=== PATIENT | male | born 1955 | race Caucasian/White ===

== ENCOUNTER 2022-04-04 15:16 | Inpatient (IN) ==
[2022-04-04] MEDS ORDERED: Piperacillin/Tazobac ADVAN 3.375 GM in NS 0.9% 100 ml BAG 100 ML IV ONE (16:10)
[2022-04-04 16:14] LABS: PCO2 Arterial 53 mmHg (35-45); PO2 Arterial 97 mmHg (80-100)
[2022-04-04] MEDS ORDERED: cefTRIAXone 1 gm/50 mL D5W 1 GM/50 ML BAG IV ONE (16:30)
[2022-04-04] MEDS: methylPREDNISolone SOD SUCC 40 mg/ml 1 ml VIAL IV SCH ×2 (16:39→23:48)
[2022-04-04] MEDS: Enoxaparin 40 MG/0.4 ML SYR SUBCUT SCH (16:39)
[2022-04-04] MEDS: Albuterol/Ipratropium NEB.SOL (2.5/0.5 MG) 3 ML NEB.SOLN INH SCH ×3 (16:45→22:31)
[2022-04-04] MEDS ORDERED: DOXYcycline IV 100 MG in NS 0.9% 250 ML IVPB ONE (17:00)
[2022-04-04] MEDS ORDERED: Zosyn per Pharmacy NOTE FOLLOW UP SCH (17:00)
[2022-04-04] MEDS ORDERED: Nicotine GUM 4MG FRUIT FLAVOR PO PRN (18:05)
[2022-04-04] MEDS: Morphine 2 MG/ML SYRINGE IV PRN (21:17)
[2022-04-04] MEDS: NS 0.9% 1000 ml BAG 1,000 ML IV SCH (21:20)
[2022-04-04] MEDS ORDERED: ZOSYN 3.375 GM Q8H per EXTENDED INFUSION IV SCH (22:00)
[2022-04-05] MEDS: Morphine 2 MG/ML SYRINGE IV PRN (03:56)
[2022-04-05 05:10] LABS: ABS Lymphocytes 0.3 10^3/ul (1.0-4.8); ABS Monocytes 0.1 10^3/ul (0-0.8); ABS Neutrophils 4.4 10^3/ul (1.5-7.7); Hematocrit 31 % (42-52); Mean Corpuscular HGB Conc 33 g/dL (31-36); Mean Corpuscular Hemoglobin 30 pg (27-31); Mean Corpuscular Volume 91 fL (80-94); Mean Platelet Volume 6.9 fL (7.4-10.4); Nucleated Red Blood Cells % 0.1; Platelet Count 501 10^3/uL (150-450); Red Blood Count 3.37 10^6 /uL (4.18-5.48); Red Cell Distribution Width 14 % (10-15); White Blood Count 4.8 10^3/uL (3.5-10.8)
[2022-04-05 06:29] LABS: Albumin/Globulin Ratio 1.3 (1-3); Globulin 2.4 g/dL (2-4); Potassium 4.6 mmol/L (3.5-5.0); Total Bilirubin 0.2 mg/dL (0.2-1.0); Total Protein 5.4 g/dL (6.4-8.9); eGFR CKD-EPI 131.3 (>60)
[2022-04-05] MEDS: Albuterol/Ipratropium NEB.SOL (2.5/0.5 MG) 3 ML NEB.SOLN INH SCH ×3 (07:11→19:16)
[2022-04-05] MEDS: Mometasone/Formoter 200/5 MDI INH SCH ×2 (07:11→19:16)
[2022-04-05] MEDS: Nicotine PATCH 21 MG/24 HR PATCH TRANSDERM SCH (07:22)
[2022-04-05] MEDS: methylPREDNISolone SOD SUCC 40 mg/ml 1 ml VIAL IV SCH ×2 (07:22→16:39)
[2022-04-05] MEDS: Aspirin EC 81 mg TAB.EC (enteric coated) PO SCH (07:23)
[2022-04-05] MEDS: DOXYcycline 100 MG in NS 0.9% 250 ml 250 ML IVPB SCH ×2 (09:00→20:53)
[2022-04-05] MEDS ORDERED: Iohexol 350 (CONTRAST) 500 ML MDV IV ONE (09:01)
[2022-04-05] MEDS: Morphine ORAL CONCENTRATE 5 MG/0.25 ML ORAL.SYRIN SL PRN ×3 (10:04→20:26)
[2022-04-05] MEDS ORDERED: Acetylcysteine INHALATION SOL 200 MG/ML NEB.SOLN 10 ML INH PRN (13:52)
[2022-04-05] MEDS: NS 0.9% 1000 ml BAG 1,000 ML IV SCH (14:42)
[2022-04-05] MEDS: Enoxaparin 40 MG/0.4 ML SYR SUBCUT SCH (16:39)
[2022-04-05] MEDS: cefTRIAXone 1 gm/50 mL D5W 1 GM/50 ML BAG IV SCH (17:39)
[2022-04-06] MEDS: methylPREDNISolone SOD SUCC 40 mg/ml 1 ml VIAL IV SCH ×2 (01:42→09:33)
[2022-04-06] MEDS: Albuterol/Ipratropium NEB.SOL (2.5/0.5 MG) 3 ML NEB.SOLN INH SCH (07:55)
[2022-04-06] MEDS: Mometasone/Formoter 200/5 MDI INH SCH ×2 (07:55→19:27)
[2022-04-06] MEDS: Morphine ORAL CONCENTRATE 5 MG/0.25 ML ORAL.SYRIN SL PRN ×3 (09:12→19:35)
[2022-04-06] MEDS: Aspirin EC 81 mg TAB.EC (enteric coated) PO SCH (09:12)
[2022-04-06] MEDS: Nicotine PATCH 21 MG/24 HR PATCH TRANSDERM SCH (09:23)
[2022-04-06] MEDS: DOXYcycline 100 MG in NS 0.9% 250 ml 250 ML IVPB SCH ×2 (09:23→19:36)
[2022-04-06] MEDS: Enoxaparin 40 MG/0.4 ML SYR SUBCUT SCH (16:29)
[2022-04-06] MEDS: cefTRIAXone 1 gm/50 mL D5W 1 GM/50 ML BAG IV SCH (17:08)
[2022-04-06] MEDS: SPIRIVA Respimat (tiotropium) 2.5 mcg/inh Inhaler INH SCH (19:27)
[2022-04-07] MEDS: Morphine ORAL CONCENTRATE 5 MG/0.25 ML ORAL.SYRIN SL PRN ×5 (00:21→21:04)
[2022-04-07 05:31] LABS: ABS Lymphocytes 1.5 10^3/ul (1.0-4.8); ABS Monocytes 1.1 10^3/ul (0-0.8); ABS Neutrophils 8.6 10^3/ul (1.5-7.7); Eosinophil % 0.1 %; Hematocrit 30 % (42-52); Hemoglobin 9.7 g/dL (14.0-18.0); Lymphocyte % 13.3 %; Mean Corpuscular HGB Conc 32 g/dL (31-36); Mean Corpuscular Hemoglobin 30 pg (27-31); Mean Corpuscular Volume 93 fL (80-94); Mean Platelet Volume 6.5 fL (7.4-10.4); Platelet Count 536 10^3/uL (150-450); Red Blood Count 3.27 10^6 /uL (4.18-5.48); Red Cell Distribution Width 14 % (10-15); White Blood Count 11.2 10^3/uL (3.5-10.8)
[2022-04-07 06:20] LABS: Potassium 4.8 mmol/L (3.5-5.0); eGFR CKD-EPI 124.2 (>60)
[2022-04-07] MEDS ORDERED: Magnesium Hydroxide LIQ 30 ML UDC PO ONE (07:15)
[2022-04-07] MEDS: Mometasone/Formoter 200/5 MDI INH SCH ×2 (07:40→20:17)
[2022-04-07] MEDS: SPIRIVA Respimat (tiotropium) 2.5 mcg/inh Inhaler INH SCH (08:06)
[2022-04-07] MEDS: Aspirin EC 81 mg TAB.EC (enteric coated) PO SCH (08:44)
[2022-04-07] MEDS: Nicotine PATCH 21 MG/24 HR PATCH TRANSDERM SCH (08:45)
[2022-04-07] MEDS: DOXYcycline 100 MG in NS 0.9% 250 ml 250 ML IVPB SCH ×2 (09:59→19:47)
[2022-04-07] MEDS: Albuterol/Ipratropium NEB.SOL (2.5/0.5 MG) 3 ML NEB.SOLN INH PRN (10:59)
[2022-04-07] MEDS ORDERED: Carbamide Peroxide 6.5% OTIC 15 ML BTL BOTH EARS ONE (11:39)
[2022-04-07] MEDS: Enoxaparin 40 MG/0.4 ML SYR SUBCUT SCH (18:06)
[2022-04-07] MEDS: cefTRIAXone 1 gm/50 mL D5W 1 GM/50 ML BAG IV SCH (18:09)
[2022-04-07] MEDS: HYDROcodone/ACETAMIN 5/325 mg TAB PO PRN (20:05)
[2022-04-08] MEDS: Morphine ORAL CONCENTRATE 5 MG/0.25 ML ORAL.SYRIN SL PRN ×4 (06:41→14:06)
[2022-04-08] MEDS: Mometasone/Formoter 200/5 MDI INH SCH ×2 (07:49→19:47)
[2022-04-08] MEDS: SPIRIVA Respimat (tiotropium) 2.5 mcg/inh Inhaler INH SCH (07:49)
[2022-04-08] MEDS: Lidocaine PATCH 5% PATCH TRANSDERM SCH (09:21)
[2022-04-08] MEDS: Nicotine PATCH 21 MG/24 HR PATCH TRANSDERM SCH (09:21)
[2022-04-08] MEDS: Aspirin EC 81 mg TAB.EC (enteric coated) PO SCH (09:23)
[2022-04-08] MEDS: DOXYcycline 100 MG in NS 0.9% 250 ml 250 ML IVPB SCH ×2 (09:33→21:15)
[2022-04-08] MEDS: Albuterol/Ipratropium NEB.SOL (2.5/0.5 MG) 3 ML NEB.SOLN INH PRN (13:32)
[2022-04-08 15:48] LABS: PCO2 Arterial 63 mmHg (35-45); PO2 Arterial 74 mmHg (80-100)
[2022-04-08] MEDS ORDERED: Lorazepam PYXIS KEY PRN (15:57)
[2022-04-08] MEDS: cefTRIAXone 1 gm/50 mL D5W 1 GM/50 ML BAG IV SCH (17:31)
[2022-04-08] MEDS: Enoxaparin 40 MG/0.4 ML SYR SUBCUT SCH (17:31)
[2022-04-09] MEDS ORDERED: Levalbuterol 0.63MG/3ML NEB UNIT OF USE INH ONE (06:00)
[2022-04-09] MEDS ORDERED: Buffered Lidocaine 1% SYRIN 1 ml INTRADERM ONE (06:00)
[2022-04-09] MEDS ORDERED: Famotidine IV 10 MG/ML 2 ml VIAL (20 mg) IV ONE (06:00)
[2022-04-09] MEDS: Lactated Ringers 1000 ml BAG 1,000 ML IV SCH (06:16)
[2022-04-09] MEDS: Morphine ORAL CONCENTRATE 5 MG/0.25 ML ORAL.SYRIN SL PRN ×2 (06:24→19:50)
[2022-04-09] MEDS: Albuterol/Ipratropium NEB.SOL (2.5/0.5 MG) 3 ML NEB.SOLN INH PRN ×2 (06:30→16:00)
[2022-04-09] MEDS: Mometasone/Formoter 200/5 MDI INH SCH ×2 (07:54→19:07)
[2022-04-09] MEDS: SPIRIVA Respimat (tiotropium) 2.5 mcg/inh Inhaler INH SCH (08:18)
[2022-04-09] MEDS: DOXYcycline 100 MG in NS 0.9% 250 ml 250 ML IVPB SCH ×2 (08:21→19:48)
[2022-04-09] MEDS: Lidocaine PATCH 5% PATCH TRANSDERM SCH (08:21)
[2022-04-09] MEDS: Nicotine PATCH 21 MG/24 HR PATCH TRANSDERM SCH (08:21)
[2022-04-09] MEDS: Aspirin EC 81 mg TAB.EC (enteric coated) PO SCH (08:22)
[2022-04-09] MEDS: Morphine 2 MG/ML SYRINGE IV PRN (11:13)
[2022-04-09] MEDS ORDERED: Midazolam 2 mg/2 ml VIAL 1 mg/ml 2 ml VIAL (2 mg) ONE (13:38)
[2022-04-09] MEDS ORDERED: Lidocaine 2% PF 10 ML AMP ONE (13:39)
[2022-04-09] MEDS ORDERED: Propofol 10 MG/ML 20 ML BTL ONE (13:39)
[2022-04-09] MEDS ORDERED: Rocuronium 50 mg VIAL 10 mg/ml 5 ml VIAL (50 mg) ONE (13:40)
[2022-04-09] MEDS ORDERED: Benzocaine/Butamben/Tetracain (CETACAINE - SINGLE USE) 5 gm TOPICAL ONE (13:44)
[2022-04-09] MEDS ORDERED: Phenylephrine IV 10 MG/ML 1 ml VIAL ONE (14:40)
[2022-04-09] MEDS ORDERED: Naloxone 0.4 mg VIAL 0.4 mg/ml 1 ml VIAL IV PRN (14:56)
[2022-04-09] MEDS ORDERED: Acetaminophen IV 1 GM/100 ML BAG IV ONE (14:56)
[2022-04-09] MEDS ORDERED: Morphine 4 MG/ML VIAL (1 ml) IV PRN (14:56)
[2022-04-09] MEDS ORDERED: Ondansetron 4 mg VIAL 2 MG/ML 2 ml VIAL IV PRN (14:56)
[2022-04-09] MEDS ORDERED: Ondansetron 4 mg VIAL 2 MG/ML 2 ml VIAL ONE (15:23)
[2022-04-09] MEDS ORDERED: Albuterol/Ipratropium NEB.SOL (2.5/0.5 MG) 3 ML NEB.SOLN ONE (15:55)
[2022-04-09] MEDS: Enoxaparin 40 MG/0.4 ML SYR SUBCUT SCH (17:16)
[2022-04-09] MEDS: cefTRIAXone 1 gm/50 mL D5W 1 GM/50 ML BAG IV SCH (17:16)
[2022-04-09 18:23] LABS: Body Fluid Appearance Cloudy; Body Fluid Color Colorless; Body Fluid Source Broncheoalveolar lav
[2022-04-09 18:26] LABS: Body Fluid Total Cells Counted 300
[2022-04-10 06:23] LABS: ABS Lymphocytes 1.5 10^3/ul (1.0-4.8); ABS Neutrophils 5.5 10^3/ul (1.5-7.7); Eosinophil % 0.5 %; Hematocrit 28 % (42-52); Hemoglobin 9.3 g/dL (14.0-18.0); Lymphocyte % 18.9 %; Mean Corpuscular HGB Conc 33 g/dL (31-36); Mean Corpuscular Hemoglobin 30 pg (27-31); Mean Corpuscular Volume 92 fL (80-94); Mean Platelet Volume 6.7 fL (7.4-10.4); Platelet Count 559 10^3/uL (150-450); Red Cell Distribution Width 14 % (10-15); White Blood Count 8.1 10^3/uL (3.5-10.8)
[2022-04-10 06:41] LABS: Calcium 8.5 mg/dL (8.6-10.3); Potassium 4.3 mmol/L (3.5-5.0); eGFR CKD-EPI 121.3 (>60)
[2022-04-10] MEDS: SPIRIVA Respimat (tiotropium) 2.5 mcg/inh Inhaler INH SCH (07:23)
[2022-04-10] MEDS: Mometasone/Formoter 200/5 MDI INH SCH ×2 (07:23→19:21)
[2022-04-10] MEDS: DOXYcycline 100 MG in NS 0.9% 250 ml 250 ML IVPB SCH ×2 (08:18→19:47)
[2022-04-10] MEDS: Morphine ORAL CONCENTRATE 5 MG/0.25 ML ORAL.SYRIN SL PRN ×2 (09:56→23:46)
[2022-04-10] MEDS: Albuterol/Ipratropium NEB.SOL (2.5/0.5 MG) 3 ML NEB.SOLN INH PRN ×2 (10:12→22:55)
[2022-04-10] MEDS: Lidocaine PATCH 5% PATCH TRANSDERM SCH (10:45)
[2022-04-10] MEDS: Morphine 2 MG/ML SYRINGE IV PRN ×2 (10:45→20:00)
[2022-04-10] MEDS: Nicotine PATCH 21 MG/24 HR PATCH TRANSDERM SCH (10:46)
[2022-04-10] MEDS: Aspirin EC 81 mg TAB.EC (enteric coated) PO SCH (10:54)
[2022-04-10] MEDS: Lactated Ringers 1000 ml BAG 1,000 ML IV SCH ×2 (10:59→20:00)
[2022-04-10] MEDS: cefTRIAXone 1 gm/50 mL D5W 1 GM/50 ML BAG IV SCH (17:58)
[2022-04-10] MEDS: Enoxaparin 40 MG/0.4 ML SYR SUBCUT SCH (17:58)
[2022-04-10] MEDS: Albuterol HFA INHALER 8 gm MDI INH PRN (18:17)
[2022-04-11] MEDS: D5W IVPB SCH ×3 (00:18→16:30)
[2022-04-11] MEDS: SULFAMETHOXAZOLE IVPB SCH ×3 (00:18→16:30)
[2022-04-11] MEDS: TRIMETH IVPB SCH ×3 (00:18→16:30)
[2022-04-11] MEDS: LORazepam 2 mg VIAL 1 ml IV PUSH PRN ×2 (04:13→10:23)
[2022-04-11] MEDS: Morphine ORAL CONCENTRATE 5 MG/0.25 ML ORAL.SYRIN SL PRN ×3 (04:13→21:16)
[2022-04-11] MEDS: Lactated Ringers 1000 ml BAG 1,000 ML IV SCH ×2 (04:17→16:30)
[2022-04-11] MEDS: Mometasone/Formoter 200/5 MDI INH SCH ×2 (08:16→19:16)
[2022-04-11] MEDS: SPIRIVA Respimat (tiotropium) 2.5 mcg/inh Inhaler INH SCH (08:16)
[2022-04-11] MEDS: Lidocaine PATCH 5% PATCH TRANSDERM SCH (08:38)
[2022-04-11] MEDS: Nicotine PATCH 21 MG/24 HR PATCH TRANSDERM SCH (08:38)
[2022-04-11] MEDS: Aspirin EC 81 mg TAB.EC (enteric coated) PO SCH (08:40)
[2022-04-11 10:25] LABS: ABS Eosinophils 0.3 10^3/ul (0-0.6); ABS Lymphocytes 1.6 10^3/ul (1.0-4.8); ABS Monocytes 0.9 10^3/ul (0-0.8); ABS Neutrophils 9.8 10^3/ul (1.5-7.7); Eosinophil % 2.8 %; Hematocrit 30 % (42-52); Hemoglobin 9.5 g/dL (14.0-18.0); Lymphocyte % 12.4 %; Mean Corpuscular HGB Conc 32 g/dL (31-36); Mean Corpuscular Hemoglobin 29 pg (27-31); Mean Corpuscular Volume 92 fL (80-94); Mean Platelet Volume 6.2 fL (7.4-10.4); Platelet Count 593 10^3/uL (150-450); Red Blood Count 3.23 10^6 /uL (4.18-5.48); Red Cell Distribution Width 14 % (10-15); White Blood Count 12.7 10^3/uL (3.5-10.8)
[2022-04-11] MEDS: Albuterol/Ipratropium NEB.SOL (2.5/0.5 MG) 3 ML NEB.SOLN INH PRN ×2 (10:28→19:15)
[2022-04-11 10:57] LABS: Calcium 8.8 mg/dL (8.6-10.3); Potassium 4.2 mmol/L (3.5-5.0); eGFR CKD-EPI 125.3 (>60)
[2022-04-11] MEDS: Morphine 2 MG/ML SYRINGE IV PRN ×2 (13:59→19:19)
[2022-04-11] MEDS: Enoxaparin 40 MG/0.4 ML SYR SUBCUT SCH (16:31)
[2022-04-12] MEDS: Morphine ORAL CONCENTRATE 5 MG/0.25 ML ORAL.SYRIN SL PRN ×3 (01:33→19:50)
[2022-04-12] MEDS: D5W IVPB SCH ×3 (01:34→16:15)
[2022-04-12] MEDS: TRIMETH IVPB SCH ×3 (01:34→16:15)
[2022-04-12] MEDS: SULFAMETHOXAZOLE IVPB SCH ×3 (01:34→16:15)
[2022-04-12] MEDS: Albuterol/Ipratropium NEB.SOL (2.5/0.5 MG) 3 ML NEB.SOLN INH PRN ×3 (05:18→23:51)
[2022-04-12 06:58] LABS: ABS Basophils 0.1 10^3/ul (0-0.2); ABS Eosinophils 0.8 10^3/ul (0-0.6); ABS Lymphocytes 1.1 10^3/ul (1.0-4.8); ABS Neutrophils 13.5 10^3/ul (1.5-7.7); Eosinophil % 4.9 %; Hematocrit 29 % (42-52); Hemoglobin 9.6 g/dL (14.0-18.0); Lymphocyte % 6.5 %; Mean Corpuscular HGB Conc 33 g/dL (31-36); Mean Corpuscular Hemoglobin 30 pg (27-31); Mean Corpuscular Volume 91 fL (80-94); Mean Platelet Volume 6.5 fL (7.4-10.4); Platelet Count 608 10^3/uL (150-450); Red Blood Count 3.19 10^6 /uL (4.18-5.48); Red Cell Distribution Width 14 % (10-15); White Blood Count 16.4 10^3/uL (3.5-10.8)
[2022-04-12 07:29] LABS: Calcium 8.7 mg/dL (8.6-10.3); Potassium 4.2 mmol/L (3.5-5.0); eGFR CKD-EPI 122.2 (>60)
[2022-04-12] MEDS: Mometasone/Formoter 200/5 MDI INH SCH ×2 (07:52→20:00)
[2022-04-12] MEDS: SPIRIVA Respimat (tiotropium) 2.5 mcg/inh Inhaler INH SCH (07:54)
[2022-04-12] MEDS: Albuterol HFA INHALER 8 gm MDI INH PRN ×2 (08:01→14:33)
[2022-04-12] MEDS: HYDROcodone/ACETAMIN 5/325 mg TAB PO PRN ×2 (08:11→14:29)
[2022-04-12] MEDS: Aspirin EC 81 mg TAB.EC (enteric coated) PO SCH (08:11)
[2022-04-12] MEDS: Lidocaine PATCH 5% PATCH TRANSDERM SCH (08:13)
[2022-04-12] MEDS: Nicotine PATCH 21 MG/24 HR PATCH TRANSDERM SCH (08:13)
[2022-04-12] MEDS: Enoxaparin 40 MG/0.4 ML SYR SUBCUT SCH (16:15)
[2022-04-12] MEDS: Senna TAB 8.6 mg TAB PO PRN (19:51)
[2022-04-13] MEDS: TRIMETH IVPB SCH ×3 (01:32→16:19)
[2022-04-13] MEDS: D5W IVPB SCH ×3 (01:32→16:19)
[2022-04-13] MEDS: SULFAMETHOXAZOLE IVPB SCH ×3 (01:32→16:19)
[2022-04-13] MEDS: Morphine ORAL CONCENTRATE 5 MG/0.25 ML ORAL.SYRIN SL PRN ×3 (02:22→23:08)
[2022-04-13 06:18] LABS: ABS Eosinophils 0.8 10^3/ul (0-0.6); ABS Lymphocytes 0.8 10^3/ul (1.0-4.8); ABS Monocytes 0.9 10^3/ul (0-0.8); ABS Neutrophils 10.5 10^3/ul (1.5-7.7); Eosinophil % 5.8 %; Hematocrit 29 % (42-52); Hemoglobin 9.6 g/dL (14.0-18.0); Lymphocyte % 6.3 %; Mean Corpuscular HGB Conc 33 g/dL (31-36); Mean Corpuscular Hemoglobin 30 pg (27-31); Mean Corpuscular Volume 91 fL (80-94); Mean Platelet Volume 6.4 fL (7.4-10.4); Platelet Count 554 10^3/uL (150-450); Red Blood Count 3.14 10^6 /uL (4.18-5.48); Red Cell Distribution Width 14 % (10-15)
[2022-04-13 06:45] LABS: Calcium 8.7 mg/dL (8.6-10.3); Potassium 4.4 mmol/L (3.5-5.0)
[2022-04-13 06:51] LABS: eGFR CKD-EPI 114.6 (>60)
[2022-04-13] MEDS: Albuterol/Ipratropium NEB.SOL (2.5/0.5 MG) 3 ML NEB.SOLN INH PRN ×2 (08:12→23:33)
[2022-04-13] MEDS: SPIRIVA Respimat (tiotropium) 2.5 mcg/inh Inhaler INH SCH (08:13)
[2022-04-13] MEDS: Mometasone/Formoter 200/5 MDI INH SCH ×2 (08:13→20:43)
[2022-04-13] MEDS: Aspirin EC 81 mg TAB.EC (enteric coated) PO SCH ×2 (09:10→10:38)
[2022-04-13] MEDS: HYDROcodone/ACETAMIN 5/325 mg TAB PO PRN ×2 (09:10→10:38)
[2022-04-13] MEDS: Nicotine PATCH 21 MG/24 HR PATCH TRANSDERM SCH (09:11)
[2022-04-13] MEDS: Lidocaine PATCH 5% PATCH TRANSDERM SCH (09:11)
[2022-04-13] MEDS: Enoxaparin 40 MG/0.4 ML SYR SUBCUT SCH (16:20)
[2022-04-13] MEDS ORDERED: LORazepam 2 mg VIAL 1 ml IV PUSH PRN (17:11)
[2022-04-13] MEDS: Senna TAB 8.6 mg TAB PO PRN (23:10)
[2022-04-14] MEDS: SULFAMETHOXAZOLE IVPB SCH ×3 (00:25→16:19)
[2022-04-14] MEDS: D5W IVPB SCH ×3 (00:25→16:19)
[2022-04-14] MEDS: TRIMETH IVPB SCH ×3 (00:25→16:19)
[2022-04-14] MEDS: Morphine ORAL CONCENTRATE 5 MG/0.25 ML ORAL.SYRIN SL PRN (04:06)
[2022-04-14] MEDS: Lidocaine PATCH 5% PATCH TRANSDERM SCH (08:12)
[2022-04-14] MEDS: Nicotine PATCH 21 MG/24 HR PATCH TRANSDERM SCH (08:12)
[2022-04-14] MEDS: Aspirin EC 81 mg TAB.EC (enteric coated) PO SCH (08:13)
[2022-04-14] MEDS: HYDROcodone/ACETAMIN 5/325 mg TAB PO PRN ×2 (08:13→21:19)
[2022-04-14] MEDS: SPIRIVA Respimat (tiotropium) 2.5 mcg/inh Inhaler INH SCH (08:22)
[2022-04-14] MEDS: Mometasone/Formoter 200/5 MDI INH SCH ×2 (08:23→20:10)
[2022-04-14] MEDS ORDERED: Furosemide 20 mg/2 ml IV VIAL IV SLOW PU ONE (13:59)
[2022-04-14] MEDS: Morphine 2 MG/ML SYRINGE IV PRN (14:51)
[2022-04-14] MEDS ORDERED: Gadoteridol (CONTRAST) 279.3 MG/ML 10 ML IV ONE (15:18)
[2022-04-14] MEDS: Enoxaparin 40 MG/0.4 ML SYR SUBCUT SCH (16:19)
[2022-04-14] MEDS: Polyethylene Glycol 3350 17 GM PACKET PO SCH ×2 (17:42→21:17)
[2022-04-15] MEDS: TRIMETH IVPB SCH ×3 (01:19→17:23)
[2022-04-15] MEDS: SULFAMETHOXAZOLE IVPB SCH ×3 (01:19→17:23)
[2022-04-15] MEDS: D5W IVPB SCH ×3 (01:19→17:23)
[2022-04-15] MEDS: Morphine 2 MG/ML SYRINGE IV PRN (02:21)
[2022-04-15 05:29] LABS: ABS Basophils 0.1 10^3/ul (0-0.2); ABS Eosinophils 1.4 10^3/ul (0-0.6); ABS Lymphocytes 0.9 10^3/ul (1.0-4.8); ABS Neutrophils 7.1 10^3/ul (1.5-7.7); Hematocrit 27 % (42-52); Hemoglobin 8.8 g/dL (14.0-18.0); Lymphocyte % 8.3 %; Mean Corpuscular HGB Conc 33 g/dL (31-36); Mean Corpuscular Hemoglobin 30 pg (27-31); Mean Corpuscular Volume 91 fL (80-94); Mean Platelet Volume 6.4 fL (7.4-10.4); Platelet Count 605 10^3/uL (150-450); Red Blood Count 2.93 10^6 /uL (4.18-5.48); Red Cell Distribution Width 14 % (10-15); White Blood Count 10.5 10^3/uL (3.5-10.8)
[2022-04-15 05:58] LABS: Calcium 8.7 mg/dL (8.6-10.3); Potassium 4.5 mmol/L (3.5-5.0); eGFR CKD-EPI 120.3 (>60)
[2022-04-15] MEDS: Nicotine PATCH 21 MG/24 HR PATCH TRANSDERM SCH (08:08)
[2022-04-15] MEDS: Lidocaine PATCH 5% PATCH TRANSDERM SCH (08:08)
[2022-04-15] MEDS: Aspirin EC 81 mg TAB.EC (enteric coated) PO SCH (08:09)
[2022-04-15] MEDS: Polyethylene Glycol 3350 17 GM PACKET PO SCH ×2 (08:09→20:42)
[2022-04-15] MEDS: Mometasone/Formoter 200/5 MDI INH SCH ×2 (08:20→21:03)
[2022-04-15] MEDS: Albuterol HFA INHALER 8 gm MDI INH PRN (08:20)
[2022-04-15] MEDS: SPIRIVA Respimat (tiotropium) 2.5 mcg/inh Inhaler INH SCH (08:20)
[2022-04-15] MEDS: Albuterol HFA INHALER 8 gm MDI INH SCH ×4 (12:11→23:11)
[2022-04-15] MEDS ORDERED: Furosemide 20 mg/2 ml IV VIAL IV SLOW PU ONE (13:34)
[2022-04-15] MEDS: Albuterol/Ipratropium NEB.SOL (2.5/0.5 MG) 3 ML NEB.SOLN INH ONE ×2 (14:39→14:40)
[2022-04-15 16:22] LABS: PCO2 Arterial 46 mmHg (35-45); PO2 Arterial 72 mmHg (80-100)
[2022-04-15] MEDS: Morphine ORAL CONCENTRATE 5 MG/0.25 ML ORAL.SYRIN SL PRN (17:23)
[2022-04-15] MEDS: Enoxaparin 40 MG/0.4 ML SYR SUBCUT SCH (17:24)
[2022-04-15] MEDS ORDERED: Albuterol/Ipratropium NEB.SOL (2.5/0.5 MG) 3 ML NEB.SOLN INH ONE (20:09)
[2022-04-16] MEDS: D5W IVPB SCH ×4 (00:21→23:58)
[2022-04-16] MEDS: SULFAMETHOXAZOLE IVPB SCH ×4 (00:21→23:58)
[2022-04-16] MEDS: TRIMETH IVPB SCH ×4 (00:21→23:58)
[2022-04-16] MEDS: Morphine 2 MG/ML SYRINGE IV PRN ×4 (03:06→20:06)
[2022-04-16] MEDS: Albuterol HFA INHALER 8 gm MDI INH SCH ×6 (04:04→22:52)
[2022-04-16] MEDS: Mometasone/Formoter 200/5 MDI INH SCH ×2 (08:35→19:15)
[2022-04-16] MEDS: SPIRIVA Respimat (tiotropium) 2.5 mcg/inh Inhaler INH SCH (08:35)
[2022-04-16] MEDS: Nicotine PATCH 21 MG/24 HR PATCH TRANSDERM SCH (08:54)
[2022-04-16] MEDS: Polyethylene Glycol 3350 17 GM PACKET PO SCH ×2 (08:54→20:07)
[2022-04-16] MEDS: Lidocaine PATCH 5% PATCH TRANSDERM SCH (08:54)
[2022-04-16] MEDS: HYDROcodone/ACETAMIN 5/325 mg TAB PO PRN (08:55)
[2022-04-16] MEDS: Aspirin EC 81 mg TAB.EC (enteric coated) PO SCH (08:56)
[2022-04-16] MEDS: Morphine ORAL CONCENTRATE 5 MG/0.25 ML ORAL.SYRIN SL PRN (12:52)
[2022-04-16] MEDS ORDERED: Albuterol HFA INHALER 8 gm MDI INH PRN (16:42)
[2022-04-16] MEDS: Enoxaparin 40 MG/0.4 ML SYR SUBCUT SCH (17:19)
[2022-04-17] MEDS: Albuterol HFA INHALER 8 gm MDI INH SCH ×5 (03:04→19:21)
[2022-04-17] MEDS: SPIRIVA Respimat (tiotropium) 2.5 mcg/inh Inhaler INH SCH (08:10)
[2022-04-17] MEDS: Mometasone/Formoter 200/5 MDI INH SCH ×2 (08:14→19:22)
[2022-04-17] MEDS: Aspirin EC 81 mg TAB.EC (enteric coated) PO SCH (09:47)
[2022-04-17] MEDS: HYDROcodone/ACETAMIN 5/325 mg TAB PO PRN (09:48)
[2022-04-17] MEDS: Lidocaine PATCH 5% PATCH TRANSDERM SCH (09:49)
[2022-04-17] MEDS: Polyethylene Glycol 3350 17 GM PACKET PO SCH ×2 (09:49→23:28)
[2022-04-17] MEDS: Nicotine PATCH 21 MG/24 HR PATCH TRANSDERM SCH (09:49)
[2022-04-17] MEDS: D5W IVPB SCH ×3 (11:22→23:59)
[2022-04-17] MEDS: SULFAMETHOXAZOLE IVPB SCH ×3 (11:22→23:59)
[2022-04-17] MEDS: TRIMETH IVPB SCH ×3 (11:22→23:59)
[2022-04-17] MEDS: Enoxaparin 40 MG/0.4 ML SYR SUBCUT SCH ×2 (17:26→17:30)
[2022-04-17] MEDS: Morphine ORAL CONCENTRATE 5 MG/0.25 ML ORAL.SYRIN SL PRN (23:37)
[2022-04-18] MEDS: Albuterol HFA INHALER 8 gm MDI INH SCH ×3 (01:20→14:18)
[2022-04-18 05:03] LABS: ABS Eosinophils 0.1 10^3/ul (0-0.6); ABS Lymphocytes 1.6 10^3/ul (1.0-4.8); ABS Monocytes 0.8 10^3/ul (0-0.8); ABS Neutrophils 5.3 10^3/ul (1.5-7.7); Eosinophil % 1.7 %; Hematocrit 26 % (42-52); Hemoglobin 8.7 g/dL (14.0-18.0); Lymphocyte % 20.1 %; Mean Corpuscular HGB Conc 33 g/dL (31-36); Mean Corpuscular Hemoglobin 30 pg (27-31); Mean Corpuscular Volume 90 fL (80-94); Mean Platelet Volume 6.1 fL (7.4-10.4); Platelet Count 728 10^3/uL (150-450); Red Blood Count 2.93 10^6 /uL (4.18-5.48); Red Cell Distribution Width 14 % (10-15); White Blood Count 7.9 10^3/uL (3.5-10.8)
[2022-04-18 05:29] LABS: Anion Gap 7 mmol/L (2-11); Blood Urea Nitrogen 4 mg/dL (6-24); CO2 Carbon Dioxide 29 mmol/L (22-32); Calcium 8.9 mg/dL (8.6-10.3); Chloride 94 mmol/L (101-111); Glucose 73 mg/dL (70-100); Potassium 4.8 mmol/L (3.5-5.0); Sodium 130 mmol/L (135-145); eGFR CKD-EPI 116.1 (>60)
[2022-04-18] MEDS: Mometasone/Formoter 200/5 MDI INH SCH ×2 (07:08→18:57)
[2022-04-18] MEDS: SPIRIVA Respimat (tiotropium) 2.5 mcg/inh Inhaler INH SCH (07:09)
[2022-04-18] MEDS: Nicotine PATCH 21 MG/24 HR PATCH TRANSDERM SCH (07:54)
[2022-04-18] MEDS: Lidocaine PATCH 5% PATCH TRANSDERM SCH (07:56)
[2022-04-18] MEDS: Polyethylene Glycol 3350 17 GM PACKET PO SCH ×2 (07:57→20:06)
[2022-04-18] MEDS: Aspirin EC 81 mg TAB.EC (enteric coated) PO SCH (07:58)
[2022-04-18] MEDS: SULFAMETHOXAZOLE IVPB SCH ×2 (09:58→18:02)
[2022-04-18] MEDS: TRIMETH IVPB SCH ×2 (09:58→18:02)
[2022-04-18] MEDS: D5W IVPB SCH ×2 (09:58→18:02)
[2022-04-18] MEDS: Morphine ORAL.SOLN 10 mg 2 mg/ml UDC 5 ml (10 mg) PO PRN (11:39)
[2022-04-18] MEDS: Albuterol/Ipratropium NEB.SOL (2.5/0.5 MG) 3 ML NEB.SOLN INH SCH ×3 (17:38→22:57)
[2022-04-18] MEDS: Enoxaparin 40 MG/0.4 ML SYR SUBCUT SCH (18:05)
[2022-04-18 18:46] LABS: ALT 10 U/L (7-52); AST 13 U/L (13-39); Albumin 2.5 g/dL (3.2-5.2); Alkaline Phosphatase 75 U/L (35-149); C Reactive Protein 33.84 mg/L (<8.01); Globulin 2.6 g/dL (2-4); Lipase 13 U/L (11.0-82.0); Total Protein 5.1 g/dL (6.4-8.9)
[2022-04-19] MEDS: TRIMETH IVPB SCH ×3 (01:48→18:33)
[2022-04-19] MEDS: SULFAMETHOXAZOLE IVPB SCH ×3 (01:48→18:33)
[2022-04-19] MEDS: D5W IVPB SCH ×3 (01:48→18:33)
[2022-04-19] MEDS: Albuterol/Ipratropium NEB.SOL (2.5/0.5 MG) 3 ML NEB.SOLN INH SCH ×6 (02:52→23:45)
[2022-04-19] MEDS: Mometasone/Formoter 200/5 MDI INH SCH ×2 (06:53→19:12)
[2022-04-19] MEDS: SPIRIVA Respimat (tiotropium) 2.5 mcg/inh Inhaler INH SCH ×2 (06:53→07:02)
[2022-04-19] MEDS: Nicotine PATCH 21 MG/24 HR PATCH TRANSDERM SCH (09:21)
[2022-04-19] MEDS: Polyethylene Glycol 3350 17 GM PACKET PO SCH ×3 (09:22→20:07)
[2022-04-19] MEDS: Lidocaine PATCH 5% PATCH TRANSDERM SCH ×2 (09:22→14:27)
[2022-04-19] MEDS: Aspirin EC 81 mg TAB.EC (enteric coated) PO SCH (09:23)
[2022-04-19] MEDS: Senna TAB 8.6 mg TAB PO PRN (09:34)
[2022-04-19] MEDS: Morphine ORAL.SOLN 10 mg 2 mg/ml UDC 5 ml (10 mg) PO PRN ×2 (11:17→22:54)
[2022-04-19] MEDS: Enoxaparin 40 MG/0.4 ML SYR SUBCUT SCH (16:11)
[2022-04-19] MEDS ORDERED: Magnesium Hydroxide LIQ 30 ML UDC PO PRN (18:32)
[2022-04-20] MEDS: TRIMETH IVPB SCH ×3 (02:10→19:13)
[2022-04-20] MEDS: SULFAMETHOXAZOLE IVPB SCH ×3 (02:10→19:13)
[2022-04-20] MEDS: D5W IVPB SCH ×3 (02:10→19:13)
[2022-04-20] MEDS: Albuterol/Ipratropium NEB.SOL (2.5/0.5 MG) 3 ML NEB.SOLN INH SCH ×6 (04:09→23:53)
[2022-04-20] MEDS: SPIRIVA Respimat (tiotropium) 2.5 mcg/inh Inhaler INH SCH (07:25)
[2022-04-20] MEDS: Mometasone/Formoter 200/5 MDI INH SCH ×2 (07:25→19:07)
[2022-04-20] MEDS: Nicotine PATCH 21 MG/24 HR PATCH TRANSDERM SCH (10:24)
[2022-04-20] MEDS: Lidocaine PATCH 5% PATCH TRANSDERM SCH ×2 (10:24→10:25)
[2022-04-20] MEDS: Aspirin EC 81 mg TAB.EC (enteric coated) PO SCH (10:25)
[2022-04-20] MEDS: Polyethylene Glycol 3350 17 GM PACKET PO SCH ×2 (10:42→20:33)
[2022-04-20] MEDS: Enoxaparin 40 MG/0.4 ML SYR SUBCUT SCH (17:58)
[2022-04-21] MEDS: Morphine ORAL.SOLN 10 mg 2 mg/ml UDC 5 ml (10 mg) PO PRN ×2 (02:42→13:41)
[2022-04-21] MEDS: Albuterol/Ipratropium NEB.SOL (2.5/0.5 MG) 3 ML NEB.SOLN INH SCH ×6 (03:57→23:15)
[2022-04-21 05:35] LABS: ABS Basophils 0.1 10^3/ul (0-0.2); ABS Eosinophils 0.1 10^3/ul (0-0.6); ABS Lymphocytes 1.4 10^3/ul (1.0-4.8); ABS Monocytes 0.8 10^3/ul (0-0.8); ABS Neutrophils 8.5 10^3/ul (1.5-7.7); Eosinophil % 0.6 %; Hematocrit 24 % (42-52); Hemoglobin 8.1 g/dL (14.0-18.0); Lymphocyte % 12.5 %; Mean Corpuscular HGB Conc 33 g/dL (31-36); Mean Corpuscular Hemoglobin 30 pg (27-31); Mean Corpuscular Volume 92 fL (80-94); Mean Platelet Volume 5.7 fL (7.4-10.4); Platelet Count 734 10^3/uL (150-450); Red Blood Count 2.66 10^6 /uL (4.18-5.48); Red Cell Distribution Width 14 % (10-15); White Blood Count 10.9 10^3/uL (3.5-10.8)
[2022-04-21 05:51] LABS: Calcium 9.3 mg/dL (8.6-10.3); Magnesium 1.9 mg/dL (1.9-2.7); Phosphorus 3.7 mg/dL (2.5-5.0); eGFR CKD-EPI 107.6 (>60)
[2022-04-21 06:06] LABS: TSH Ultra Thyroid Stim Horm 3.24 mcIU/mL (0.34-5.60)
[2022-04-21] MEDS: Mometasone/Formoter 200/5 MDI INH SCH ×2 (07:48→18:52)
[2022-04-21] MEDS: SPIRIVA Respimat (tiotropium) 2.5 mcg/inh Inhaler INH SCH (07:48)
[2022-04-21] MEDS: Lidocaine PATCH 5% PATCH TRANSDERM SCH ×2 (08:29)
[2022-04-21] MEDS: Nicotine PATCH 21 MG/24 HR PATCH TRANSDERM SCH (08:29)
[2022-04-21] MEDS: Polyethylene Glycol 3350 17 GM PACKET PO SCH ×2 (08:30→22:25)
[2022-04-21] MEDS: Aspirin EC 81 mg TAB.EC (enteric coated) PO SCH (08:30)
[2022-04-21] MEDS: Enoxaparin 40 MG/0.4 ML SYR SUBCUT SCH (17:55)
[2022-04-22] MEDS: Albuterol/Ipratropium NEB.SOL (2.5/0.5 MG) 3 ML NEB.SOLN INH SCH ×4 (03:18→17:51)
[2022-04-22] MEDS: SPIRIVA Respimat (tiotropium) 2.5 mcg/inh Inhaler INH SCH (07:30)
[2022-04-22] MEDS: Mometasone/Formoter 200/5 MDI INH SCH ×2 (07:30→17:52)
[2022-04-22] MEDS: Aspirin EC 81 mg TAB.EC (enteric coated) PO SCH (08:02)
[2022-04-22] MEDS: Polyethylene Glycol 3350 17 GM PACKET PO SCH ×2 (08:05→19:59)
[2022-04-22] MEDS: Nicotine PATCH 21 MG/24 HR PATCH TRANSDERM SCH (08:13)
[2022-04-22] MEDS: Lidocaine PATCH 5% PATCH TRANSDERM SCH ×2 (08:13)
[2022-04-22] MEDS: Enoxaparin 40 MG/0.4 ML SYR SUBCUT SCH (18:15)
[2022-04-23] MEDS: Albuterol/Ipratropium NEB.SOL (2.5/0.5 MG) 3 ML NEB.SOLN INH SCH ×4 (01:16→18:14)
[2022-04-23 06:51] LABS: ABS Basophils 0.5 10^3/ul (0-0.2); ABS Eosinophils 1.6 10^3/ul (0-0.6); ABS Lymphocytes 1.3 10^3/ul (1.0-4.8); ABS Monocytes 0.8 10^3/ul (0-0.8); ABS Neutrophils 7.7 10^3/ul (1.5-7.7); Eosinophil % 13.3 %; Hematocrit 26 % (42-52); Hemoglobin 8.7 g/dL (14.0-18.0); Lymphocyte % 11.3 %; Mean Corpuscular HGB Conc 33 g/dL (31-36); Mean Corpuscular Hemoglobin 31 pg (27-31); Mean Corpuscular Volume 92 fL (80-94); Platelet Count 770 10^3/uL (150-450); Red Blood Count 2.85 10^6 /uL (4.18-5.48); Red Cell Distribution Width 15 % (10-15)
[2022-04-23 07:13] LABS: Calcium 9.5 mg/dL (8.6-10.3); Potassium 4.9 mmol/L (3.5-5.0); eGFR CKD-EPI 107.6 (>60)
[2022-04-23] MEDS: Mometasone/Formoter 200/5 MDI INH SCH ×2 (07:30→18:15)
[2022-04-23] MEDS: SPIRIVA Respimat (tiotropium) 2.5 mcg/inh Inhaler INH SCH (07:30)
[2022-04-23] MEDS: Lidocaine PATCH 5% PATCH TRANSDERM SCH ×2 (08:18)
[2022-04-23] MEDS: Nicotine PATCH 21 MG/24 HR PATCH TRANSDERM SCH (08:18)
[2022-04-23] MEDS: Aspirin EC 81 mg TAB.EC (enteric coated) PO SCH (08:19)
[2022-04-23] MEDS: Polyethylene Glycol 3350 17 GM PACKET PO SCH ×2 (08:19→20:15)
[2022-04-23] MEDS: Enoxaparin 40 MG/0.4 ML SYR SUBCUT SCH (18:37)
[2022-04-24] MEDS: Albuterol/Ipratropium NEB.SOL (2.5/0.5 MG) 3 ML NEB.SOLN INH SCH (00:57)
[2022-04-24] MEDS ORDERED: Piperacillin/Tazobac ADVAN 3.375 GM in NS 0.9% 100 ml BAG 100 ML IV ONE (06:36)
[2022-04-24] MEDS ORDERED: Acetaminophen IV 1 GM/100ML 100 ML IV PRN (06:37)
[2022-04-24 06:52] LABS: Calcium 9.5 mg/dL (8.6-10.3); Magnesium 1.6 mg/dL (1.9-2.7); Potassium 4.6 mmol/L (3.5-5.0); eGFR CKD-EPI 113.9 (>60)
[2022-04-24 07:05] LABS: ABS Basophils 0.2 10^3/ul (0-0.2); ABS Eosinophils 0.4 10^3/ul (0-0.6); ABS Lymphocytes 0.8 10^3/ul (1.0-4.8); ABS Monocytes 0.8 10^3/ul (0-0.8); ABS Neutrophils 16.2 10^3/ul (1.5-7.7); Eosinophil % 2.1 %; Hematocrit 28 % (42-52); Lymphocyte % 4.5 %; Mean Corpuscular HGB Conc 32 g/dL (31-36); Mean Corpuscular Hemoglobin 30 pg (27-31); Mean Corpuscular Volume 92 fL (80-94); Mean Platelet Volume 5.9 fL (7.4-10.4); Platelet Count 743 10^3/uL (150-450); Red Blood Count 3.06 10^6 /uL (4.18-5.48); Red Cell Distribution Width 15 % (10-15); White Blood Count 18.4 10^3/uL (3.5-10.8)
[2022-04-24] MEDS ORDERED: Magnesium Sulfate 2 gm BAG 2 GM/50 ML BAG IVPB ONE (07:51)
[2022-04-24] MEDS: Aspirin EC 81 mg TAB.EC (enteric coated) PO SCH (08:04)
[2022-04-24] MEDS: Nicotine PATCH 21 MG/24 HR PATCH TRANSDERM SCH (08:05)
[2022-04-24] MEDS: Lidocaine PATCH 5% PATCH TRANSDERM SCH ×2 (08:08→08:20)
[2022-04-24] MEDS ORDERED: Zosyn per Pharmacy NOTE FOLLOW UP SCH (09:00)
[2022-04-24 09:10] LABS: C Reactive Protein 75.45 mg/L (<8.01)
[2022-04-24] MEDS: Mometasone/Formoter 200/5 MDI INH SCH ×2 (09:21→20:31)
[2022-04-24] MEDS: SPIRIVA Respimat (tiotropium) 2.5 mcg/inh Inhaler INH SCH (09:21)
[2022-04-24] MEDS: Fluconazole 200 MG IVPREMIX 200 MG/100 ML BAG IVPB SCH (11:30)
[2022-04-24] MEDS: Polyethylene Glycol 3350 17 GM PACKET PO SCH ×2 (12:02→21:22)
[2022-04-24] MEDS ORDERED: Iohexol 350 (CONTRAST) 500 ML MDV IV ONE (14:27)
[2022-04-24] MEDS: ZOSYN 3.375 GM Q8H per EXTENDED INFUSION IV SCH ×5 (14:31→22:31)
[2022-04-24] MEDS ORDERED: PEG 3000 GI LAVAGE 1 GALLON PO ONE (16:00)
[2022-04-24] MEDS: Enoxaparin 40 MG/0.4 ML SYR SUBCUT SCH ×2 (17:43→17:47)
[2022-04-25 03:36] LABS: Urine Appearance Cloudy; Urine Bilirubin Negative (Negative); Urine Blood Negative (Negative); Urine Color Yellow; Urine Glucose Negative (Negative); Urine Ketones Negative (Negative); Urine Nitrite Negative (Negative); Urine Protein Negative (Negative); Urine Specific Gravity 1.044 (1.002-1.030); Urine Urobilinogen Negative (Negative)
[2022-04-25] MEDS: ZOSYN 3.375 GM Q8H per EXTENDED INFUSION IV SCH ×3 (05:36→22:40)
[2022-04-25] MEDS ORDERED: Magnesium CITRATE LIQ 300 ML BTL PO ONE (06:00)
[2022-04-25 06:22] LABS: Hematocrit 28 % (42-52); Hemoglobin 9.3 g/dL (14.0-18.0); Mean Corpuscular HGB Conc 33 g/dL (31-36); Mean Corpuscular Hemoglobin 31 pg (27-31); Mean Corpuscular Volume 93 fL (80-94); Mean Platelet Volume 5.8 fL (7.4-10.4); Platelet Count 733 10^3/uL (150-450); Red Blood Count 3.06 10^6 /uL (4.18-5.48); Red Cell Distribution Width 15 % (10-15); White Blood Count 18.3 10^3/uL (3.5-10.8)
[2022-04-25 06:50] LABS: Calcium 9.3 mg/dL (8.6-10.3); Magnesium 1.8 mg/dL (1.9-2.7); Potassium 4.3 mmol/L (3.5-5.0); eGFR CKD-EPI 106.5 (>60)
[2022-04-25] MEDS: SPIRIVA Respimat (tiotropium) 2.5 mcg/inh Inhaler INH SCH (07:31)
[2022-04-25] MEDS: Mometasone/Formoter 200/5 MDI INH SCH ×2 (07:31→19:27)
[2022-04-25 09:50] LABS: ABS Eosinophils 0.7 10^3/ul (0-0.6); ABS Lymphocytes 0.8 10^3/ul (1.0-4.8); ABS Monocytes 0.9 10^3/ul (0-0.8); ABS Neutrophils 15.9 10^3/ul (1.5-7.7); Eosinophil % 3.6 %; Lymphocyte % 4.4 %; RBC Morphology Normal (Normal)
[2022-04-25] MEDS: Fluconazole 200 MG IVPREMIX 200 MG/100 ML BAG IVPB SCH (09:51)
[2022-04-25] MEDS: Aspirin EC 81 mg TAB.EC (enteric coated) PO SCH (09:52)
[2022-04-25] MEDS: Nicotine PATCH 21 MG/24 HR PATCH TRANSDERM SCH (09:54)
[2022-04-25] MEDS: Lidocaine PATCH 5% PATCH TRANSDERM SCH ×2 (09:56→09:57)
[2022-04-25] MEDS: Polyethylene Glycol 3350 17 GM PACKET PO SCH ×2 (09:57→20:19)
[2022-04-25] MEDS: Enoxaparin 40 MG/0.4 ML SYR SUBCUT SCH (18:09)
[2022-04-25] MEDS: Albuterol/Ipratropium NEB.SOL (2.5/0.5 MG) 3 ML NEB.SOLN INH PRN (22:16)
[2022-04-26] MEDS: ZOSYN 3.375 GM Q8H per EXTENDED INFUSION IV SCH ×3 (05:35→21:10)
[2022-04-26 06:52] LABS: Hematocrit 23 % (42-52); Hemoglobin 7.6 g/dL (14.0-18.0); Mean Corpuscular HGB Conc 33 g/dL (31-36); Mean Corpuscular Hemoglobin 30 pg (27-31); Mean Corpuscular Volume 92 fL (80-94); Platelet Count 622 10^3/uL (150-450); Red Blood Count 2.53 10^6 /uL (4.18-5.48); Red Cell Distribution Width 15 % (10-15); White Blood Count 12.5 10^3/uL (3.5-10.8)
[2022-04-26 07:17] LABS: Calcium 8.4 mg/dL (8.6-10.3); Magnesium 1.9 mg/dL (1.9-2.7); Potassium 4.1 mmol/L (3.5-5.0)
[2022-04-26 07:23] LABS: eGFR CKD-EPI 111.2 (>60)
[2022-04-26] MEDS: Mometasone/Formoter 200/5 MDI INH SCH ×2 (07:31→19:05)
[2022-04-26] MEDS: SPIRIVA Respimat (tiotropium) 2.5 mcg/inh Inhaler INH SCH (07:31)
[2022-04-26 07:37] LABS: ABS Basophils 0.1 10^3/ul (0-0.2); ABS Eosinophils 0.5 10^3/ul (0-0.6); ABS Lymphocytes 1.2 10^3/ul (1.0-4.8); ABS Monocytes 0.8 10^3/ul (0-0.8); ABS Neutrophils 9.9 10^3/ul (1.5-7.7); Eosinophil % 4.1 %; Lymphocyte % 9.4 %; RBC Morphology Normal (Normal)
[2022-04-26] MEDS: Aspirin EC 81 mg TAB.EC (enteric coated) PO SCH (08:38)
[2022-04-26] MEDS: Nicotine PATCH 21 MG/24 HR PATCH TRANSDERM SCH (08:38)
[2022-04-26] MEDS: Polyethylene Glycol 3350 17 GM PACKET PO SCH ×2 (08:39→20:18)
[2022-04-26] MEDS: Lidocaine PATCH 5% PATCH TRANSDERM SCH ×2 (08:39)
[2022-04-26] MEDS: Fluconazole 200 MG IVPREMIX 200 MG/100 ML BAG IVPB SCH (09:55)
[2022-04-26 17:42] LABS: Hematocrit 24 % (42-52); Hemoglobin 8.1 g/dL (14.0-18.0); Mean Platelet Volume 5.9 fL (7.4-10.4); Platelet Count 657 10^3/uL (150-450)
[2022-04-26] MEDS: Enoxaparin 40 MG/0.4 ML SYR SUBCUT SCH (18:01)
[2022-04-27] MEDS: ZOSYN 3.375 GM Q8H per EXTENDED INFUSION IV SCH ×3 (05:16→22:04)
[2022-04-27 06:39] LABS: ABS Basophils 0.1 10^3/ul (0-0.2); ABS Eosinophils 0.5 10^3/ul (0-0.6); ABS Lymphocytes 1.3 10^3/ul (1.0-4.8); ABS Monocytes 0.9 10^3/ul (0-0.8); Eosinophil % 4.3 %; Hematocrit 24 % (42-52); Hemoglobin 7.9 g/dL (14.0-18.0); Lymphocyte % 12.4 %; Mean Corpuscular HGB Conc 33 g/dL (31-36); Mean Corpuscular Hemoglobin 31 pg (27-31); Mean Corpuscular Volume 92 fL (80-94); Platelet Count 642 10^3/uL (150-450); Red Blood Count 2.59 10^6 /uL (4.18-5.48); Red Cell Distribution Width 15 % (10-15); White Blood Count 10.8 10^3/uL (3.5-10.8)
[2022-04-27 07:08] LABS: Calcium 8.8 mg/dL (8.6-10.3); Magnesium 1.8 mg/dL (1.9-2.7); Potassium 4.2 mmol/L (3.5-5.0); eGFR CKD-EPI 116.1 (>60)
[2022-04-27] MEDS ORDERED: Magnesium Sulfate IV 1GM/100ML 1 GM/100 ML BAG IV ONE (07:23)
[2022-04-27] MEDS: SPIRIVA Respimat (tiotropium) 2.5 mcg/inh Inhaler INH SCH (07:54)
[2022-04-27] MEDS: Mometasone/Formoter 200/5 MDI INH SCH ×2 (07:56→20:00)
[2022-04-27] MEDS: Nicotine PATCH 21 MG/24 HR PATCH TRANSDERM SCH (09:01)
[2022-04-27] MEDS: Aspirin EC 81 mg TAB.EC (enteric coated) PO SCH (09:02)
[2022-04-27] MEDS: Lidocaine PATCH 5% PATCH TRANSDERM SCH ×2 (09:02)
[2022-04-27] MEDS: Polyethylene Glycol 3350 17 GM PACKET PO SCH ×2 (09:03→20:23)
[2022-04-27] MEDS: Fluconazole 200 MG IVPREMIX 200 MG/100 ML BAG IVPB SCH (10:11)
[2022-04-27] MEDS: Albuterol/Ipratropium NEB.SOL (2.5/0.5 MG) 3 ML NEB.SOLN INH PRN (13:49)
[2022-04-27] MEDS ORDERED: Magnesium CITRATE LIQ 300 ML BTL PO ONE (17:14)
[2022-04-27] MEDS: Enoxaparin 40 MG/0.4 ML SYR SUBCUT SCH (18:07)
[2022-04-28] MEDS: ZOSYN 3.375 GM Q8H per EXTENDED INFUSION IV SCH ×2 (05:32→14:08)
[2022-04-28 06:40] LABS: ABS Eosinophils 0.3 10^3/ul (0-0.6); ABS Lymphocytes 1.3 10^3/ul (1.0-4.8); ABS Monocytes 1.1 10^3/ul (0-0.8); ABS Neutrophils 7.5 10^3/ul (1.5-7.7); Eosinophil % 2.4 %; Hematocrit 25 % (42-52); Hemoglobin 8.4 g/dL (14.0-18.0); Lymphocyte % 12.9 %; Mean Corpuscular HGB Conc 33 g/dL (31-36); Mean Corpuscular Hemoglobin 31 pg (27-31); Mean Corpuscular Volume 92 fL (80-94); Mean Platelet Volume 6.3 fL (7.4-10.4); Platelet Count 708 10^3/uL (150-450); Red Blood Count 2.76 10^6 /uL (4.18-5.48); Red Cell Distribution Width 15 % (10-15); White Blood Count 10.3 10^3/uL (3.5-10.8)
[2022-04-28 06:58] LABS: Calcium 8.9 mg/dL (8.6-10.3); Magnesium 1.8 mg/dL (1.9-2.7); Potassium 4.6 mmol/L (3.5-5.0); eGFR CKD-EPI 110.5 (>60)
[2022-04-28] MEDS: SPIRIVA Respimat (tiotropium) 2.5 mcg/inh Inhaler INH SCH (07:14)
[2022-04-28] MEDS: Mometasone/Formoter 200/5 MDI INH SCH (07:18)
[2022-04-28] MEDS: Aspirin EC 81 mg TAB.EC (enteric coated) PO SCH (08:52)
[2022-04-28] MEDS: Nicotine PATCH 21 MG/24 HR PATCH TRANSDERM SCH (08:56)
[2022-04-28] MEDS: Lidocaine PATCH 5% PATCH TRANSDERM SCH ×2 (08:56→08:57)
[2022-04-28] MEDS: Polyethylene Glycol 3350 17 GM PACKET PO SCH (09:04)
[2022-04-28] MEDS: Fluconazole 200 MG IVPREMIX 200 MG/100 ML BAG IVPB SCH (11:28)
[2022-04-28 15:08] VITALS: BP 129/63
== END 2022-04-28 17:30 | disposition home health service (06) | DRG 871 ==
LOC: ED 15:16 → SUATTDRO 16:22 → EDHOLD 16:22 → MED 20:56
PROVIDERS: ADMIT Internal Medicine; ATTEND Student in an Organized Health Care Education/Training Program
PROC: O.GIEGD (2022-04-22 14:10)

== ENCOUNTER 2022-07-15 15:44 | Observation (INO) ==
[2022-07-15] MEDS ORDERED: Dexamethasone IV 4 MG/ML 5 ML VIAL (20 MG) IVPB ONE (16:23)
[2022-07-15] MEDS ORDERED: Albuterol 2.5mg/3 ml (0.083%) NEB.SOLN INH ONE ×2 (16:23→23:13)
[2022-07-15 16:43] LABS: PCO2 Arterial 62 mmHg (35-45); PO2 Arterial 78 mmHg (80-100)
[2022-07-15 17:18] LABS: ABS Eosinophils 0.4 10^3/ul (0-0.6); ABS Lymphocytes 1.3 10^3/ul (1.0-4.8); ABS Monocytes 0.7 10^3/ul (0-0.8); ABS Neutrophils 8.4 10^3/ul (1.5-7.7); Eosinophil % 3.4 %; Hematocrit 33 % (42-52); Hemoglobin 10.4 g/dL (14.0-18.0); Mean Corpuscular HGB Conc 32 g/dL (31-36); Mean Corpuscular Hemoglobin 28 pg (27-31); Mean Corpuscular Volume 87 fL (80-94); Mean Platelet Volume 6.6 fL (7.4-10.4); Platelet Count 668 10^3/uL (150-450); Red Blood Count 3.71 10^6 /uL (4.18-5.48); Red Cell Distribution Width 15 % (10-15); White Blood Count 10.8 10^3/uL (3.5-10.8)
[2022-07-15 17:57] LABS: Albumin 3.1 g/dL (3.2-5.2); Albumin/Globulin Ratio 0.9 (1-3); Calcium 10.4 mg/dL (8.6-10.3); Globulin 3.5 g/dL (2-4); Total Bilirubin 0.2 mg/dL (0.2-1.0); Total Protein 6.6 g/dL (6.4-8.9); eGFR CKD-EPI 111.1 (>60)
[2022-07-15] MEDS ORDERED: Dexamethasone IV 10 MG in NS 0.9% 50 ML IVPB ONE (18:00)
[2022-07-15 19:32] LABS: High Sensitivity Troponin 1 Hr 15 pg/mL (<20)
[2022-07-16] MEDS ORDERED: Morphine 4 MG/ML VIAL (1 ml) IV ONE (00:32)
[2022-07-16] MEDS ORDERED: Morphine 2 MG/ML SYRINGE IV ONE (01:03)
[2022-07-16] MEDS ORDERED: Senna TAB 8.6 mg TAB PO PRN (01:05)
[2022-07-16] MEDS ORDERED: Polyethylene Glycol 3350 17 GM PACKET PO PRN (01:05)
[2022-07-16] MEDS ORDERED: Albuterol HFA INHALER 8 gm MDI INH PRN (01:05)
[2022-07-16 01:27] LABS: C Reactive Protein 26.14 mg/L (<8.01)
[2022-07-16] MEDS ORDERED: Albuterol 2.5mg/3 ml (0.083%) NEB.SOLN INH PRN ×2 (01:49→05:49)
[2022-07-16] MEDS ORDERED: Azithromycin 500 MG IV - ED ONCE IVPB ONE (02:00)
[2022-07-16] MEDS: Albuterol/Ipratropium NEB.SOL (2.5/0.5 MG) 3 ML NEB.SOLN INH PRN (03:53)
[2022-07-16] MEDS ORDERED: D5LR 1000 ml BAG 1,000 ML IV SCH (04:00)
[2022-07-16] MEDS: Heparin 5000 UNITS/ML 1 mL VIAL SUBCUT SCH ×3 (06:41→22:38)
[2022-07-16 06:54] LABS: ABS Basophils 0.1 10^3/ul (0-0.2); ABS Lymphocytes 1.3 10^3/ul (1.0-4.8); ABS Monocytes 0.6 10^3/ul (0-0.8); ABS Neutrophils 9.8 10^3/ul (1.5-7.7); Hematocrit 29 % (42-52); Hemoglobin 9.3 g/dL (14.0-18.0); Lymphocyte % 10.9 %; Mean Corpuscular HGB Conc 32 g/dL (31-36); Mean Corpuscular Hemoglobin 28 pg (27-31); Mean Corpuscular Volume 86 fL (80-94); Mean Platelet Volume 6.3 fL (7.4-10.4); Platelet Count 662 10^3/uL (150-450); Red Blood Count 3.34 10^6 /uL (4.18-5.48); Red Cell Distribution Width 16 % (10-15); White Blood Count 11.7 10^3/uL (3.5-10.8)
[2022-07-16 07:45] LABS: Calcium 9.8 mg/dL (8.6-10.3); eGFR CKD-EPI 113.9 (>60)
[2022-07-16] MEDS: Aspirin EC 81 mg TAB.EC (enteric coated) PO SCH (08:18)
[2022-07-16] MEDS: Nicotine PATCH 21 MG/24 HR PATCH TRANSDERM SCH (08:26)
[2022-07-16] MEDS: Lidocaine PATCH 5% PATCH TRANSDERM SCH (08:29)
[2022-07-16] MEDS: Iron Sucrose 200 MG in NS 0.9% 100 ml BAG 100 ML IVPB SCH (08:44)
[2022-07-16] MEDS ORDERED: Fluticasone/Vilanterol MDI(NF) 200/25 MDI INH SCH (09:00)
[2022-07-16] MEDS ORDERED: Umeclidinium 62.5 MDI(NF) MDI INH SCH (09:00)
[2022-07-16] MEDS ORDERED: Enoxaparin 30 MG/0.3 ML SYR SUBCUT SCH (16:00)
[2022-07-16] MEDS: methylPREDNISolone SOD SUCC 40 mg/ml 1 ml VIAL IV SCH (17:38)
[2022-07-17] MEDS: methylPREDNISolone SOD SUCC 40 mg/ml 1 ml VIAL IV SCH ×3 (01:00→17:06)
[2022-07-17] MEDS: Azithromycin 500 mg/250 ml NS 500 MG/250 ML BAG IVPB SCH (05:16)
[2022-07-17 06:16] LABS: Hematocrit 29 % (42-52); Hemoglobin 9.7 g/dL (14.0-18.0); Mean Corpuscular HGB Conc 34 g/dL (31-36); Mean Corpuscular Hemoglobin 29 pg (27-31); Mean Corpuscular Volume 86 fL (80-94); Mean Platelet Volume 6.6 fL (7.4-10.4); Platelet Count 639 10^3/uL (150-450); Red Blood Count 3.33 10^6 /uL (4.18-5.48); Red Cell Distribution Width 16 % (10-15); White Blood Count 6.9 10^3/uL (3.5-10.8)
[2022-07-17 06:42] LABS: Calcium 10.1 mg/dL (8.6-10.3); eGFR CKD-EPI 112.5 (>60)
[2022-07-17] MEDS: Aspirin EC 81 mg TAB.EC (enteric coated) PO SCH (09:47)
[2022-07-17] MEDS: Nicotine PATCH 21 MG/24 HR PATCH TRANSDERM SCH (09:47)
[2022-07-17] MEDS: Lidocaine PATCH 5% PATCH TRANSDERM SCH (09:55)
[2022-07-17] MEDS: Iron Sucrose 200 MG in NS 0.9% 100 ml BAG 100 ML IVPB SCH (11:34)
[2022-07-17] MEDS ORDERED: Enoxaparin 30 MG/0.3 ML SYR SUBCUT SCH (20:00)
[2022-07-18] MEDS: methylPREDNISolone SOD SUCC 40 mg/ml 1 ml VIAL IV SCH ×2 (00:38→09:11)
[2022-07-18] MEDS: Azithromycin 500 mg/250 ml NS 500 MG/250 ML BAG IVPB SCH (05:09)
[2022-07-18 06:31] LABS: Calcium 9.9 mg/dL (8.6-10.3); Magnesium 1.9 mg/dL (1.9-2.7); Potassium 4.8 mmol/L (3.5-5.0); eGFR CKD-EPI 115.4 (>60)
[2022-07-18] MEDS: Iron Sucrose 200 MG in NS 0.9% 100 ml BAG 100 ML IVPB SCH (09:09)
[2022-07-18] MEDS: Nicotine PATCH 21 MG/24 HR PATCH TRANSDERM SCH (09:09)
[2022-07-18] MEDS: Lidocaine PATCH 5% PATCH TRANSDERM SCH (09:10)
[2022-07-18] MEDS: Aspirin EC 81 mg TAB.EC (enteric coated) PO SCH (09:11)
[2022-07-18] MEDS: Albuterol/Ipratropium NEB.SOL (2.5/0.5 MG) 3 ML NEB.SOLN INH PRN (11:10)
[2022-07-18 11:47] VITALS: BP 125/84
== END 2022-07-18 13:05 | disposition home or self-care (01) ==
LOC: EDHOLD 15:44 → ED 15:44 → SUATTDRO 07-16 01:00 → MED 07-16 16:35
PROVIDERS: ADMIT Hospitalist; ATTEND Internal Medicine